=== PATIENT | female | born 1965 | race Two or more races ===

== ENCOUNTER → 2019-09-21 06:17 | Outpatient (CLI) | payer OTHER ==
[~2019-09-21 06:17] MED LIST: CATAFLAN PO; CVS GLUCOSAMIN1 EACH PO; DIOVAN HCT 3201 EACH PO; ETODOLAC600 MG PO; NABUMETONE500 MG PO; NORVASC5 MG PO; OMEGA-31000 MG PO; PERCOCET 5-3251 EACH PO; TOPROL XL100 M1 PO; TRICOR48 MG PO
== END | disposition home or self-care (01) ==
LOC: LAB 06:17
PROVIDERS: ATTEND Orthopaedic Surgery
DX: D64.89 Other specified anemias (principal); E78.2 Mixed hyperlipidemia; N39.0 Urinary tract infection, site not specified; Z03.818 Encounter for observation for suspected exposure to other biological agents ruled out; Z20.828 Contact with and (suspected) exposure to other viral communicable diseases; R07.89 Other chest pain; I10 Essential (primary) hypertension

== ENCOUNTER 2022-12-07 13:27 | Outpatient (CLI) | payer OTHER | END 2022-12-07 13:43 | disposition home or self-care (01) | LOC: RAD 13:27 | PROVIDERS: ATTEND Orthopaedic Surgery | DX: M17.0 Bilateral primary osteoarthritis of knee (principal) ==